=== PATIENT | male | born 1960 | race Caucasian/White ===

== ENCOUNTER 2023-05-06 19:35 | Outpatient (CLI) | payer OTHER ==
--- NOTE | 2023-05-07 13:26 | XRAY Report ---
PROCEDURE: Chest 2 View X-Ray INDICATIONS: ASTHMATIC BRONCHITIS TECHNIQUE: 2 views of the chest were acquired. COMPARISON: None. FINDINGS: Surgical changes and devices: None. Lungs and pleura: No pleural effusions or pneumothorax. Lungs are clear. Peribronchial cuffing. Mediastinum: Mediastinal contours appear normal. Heart size is normal. Bones and chest wall: No suspicious bony lesions. Overlying soft tissues appear unremarkable. IMPRESSION: Peribronchial cuffing, suggestive of infectious or inflammatory bronchitis. Reviewed by: Dar Brennan on 05/07/2023 1:24 PM PDT Approved by: Dar Brennan on 05/07/2023 1:24 PM PDT Station ID: [id number]
== END 2023-05-06 19:36 | disposition home or self-care (01) ==
LOC: DI 19:35
PROVIDERS: ATTEND Family Medicine
DX: J45.909 Unspecified asthma, uncomplicated (principal)